=== PATIENT | female | born 1995 | race Hispanic/Latino ===

== ENCOUNTER 2021-08-03 11:28 | Emergency (ER) | payer OTHER | END 2021-08-03 13:15 | disposition home or self-care (01) | LOC: CSHERS 11:28 | DX: O9A.212 Injury, poisoning and certain other consequences of external causes complicating pregnancy, second trimester (principal); M25.572 Pain in left ankle and joints of left foot; M25.472 Effusion, left ankle; W31.89XA Contact with other specified machinery, initial encounter; Y92.69 Other specified industrial and construction area as the place of occurrence of the external cause; Z3A.24 24 weeks gestation of pregnancy ==

== ENCOUNTER 2021-09-12 08:00 | Outpatient (CLI) | payer OTHER ==
[2021-09-12 18:51] LABS: SARS-CoV-2 PCR by NAA Not Detected (NotDetected)
== END 2021-09-12 08:01 | disposition home or self-care (01) ==
LOC: CSHLAB 08:00
PROVIDERS: ATTEND Student in an Organized Health Care Education/Training Program
DX: Z20.822 Contact with and (suspected) exposure to COVID-19 (principal)
CPT/HCPCS: U0003; U0005

== ENCOUNTER 2021-09-15 08:07 | Day surgery (SDC) | payer OTHER ==
[2021-09-15 08:49] VITALS: BMI 29.8
[2021-09-15] MEDS ORDERED: Acetaminophen 500 MG TAB PO SCH (09:00)
[2021-09-15] MEDS ORDERED: Iron Sucrose Complex 500 MG in Sodium Chloride 0.9% 250 ML 250 ML IVPB SCH (09:30)
[2021-09-15] MEDS ORDERED: Famotidine 20 MG TAB PO SCH (13:15)
[2021-09-15] MEDS ORDERED: diphenhydrAMINE 50 MG CAP PO PRN (13:48)
== END 2021-09-15 16:35 | disposition home or self-care (01) ==
LOC: CSHLD/OP 08:07
PROVIDERS: ATTEND Student in an Organized Health Care Education/Training Program
DX: O99.013 Anemia complicating pregnancy, third trimester (principal); D50.9 Iron deficiency anemia, unspecified; O21.0 Mild hyperemesis gravidarum; Z3A.38 38 weeks gestation of pregnancy
CPT/HCPCS: 96361; 96365; 96366; 99284; J1756; J7050

== ENCOUNTER 2021-09-25 19:00 | Inpatient (IN) | payer OTHER ==
[2021-09-26] MEDS ORDERED: Promethazine HCl 25 MG/ML VIAL IM PRN ×2 (01:23→11:53)
[2021-09-26] MEDS ORDERED: hydrALAZINE 20 MG/ML VIAL SLOW IVP PRN (01:23)
[2021-09-26] MEDS ORDERED: Acetaminophen 500 MG TAB PO PRN (01:23)
[2021-09-26] MEDS ORDERED: Ondansetron PF 4 MG/2 ML Vial IVP PRN ×2 (01:23→11:53)
[2021-09-26] MEDS ORDERED: Diphenoxylate HCl/Atropine Tablet PO PRN (01:28)
[2021-09-26] MEDS ORDERED: Ibuprofen 800 MG TAB PO PRN (01:28)
[2021-09-26] MEDS ORDERED: Misoprostol 200 MCG TAB PR PRN (01:28)
[2021-09-26] MEDS ORDERED: Methylergonovine 0.2 MG/ML VIAL IM PRN (01:28)
[2021-09-26] MEDS ORDERED: Carboprost 250 MCG/ML AMP IM PRN (01:28)
[2021-09-26] MEDS ORDERED: Lidocaine 1% (PF) 30 ML VIAL SC PRN (01:28)
[2021-09-26] MEDS ORDERED: NS w/ Oxytocin 30 units 500 ML IV SCH (01:30)
[2021-09-26] MEDS: Lactated Ringer's 1,000 ML IV SCH (02:25)
[2021-09-26 02:33] VITALS: BMI 29.4
[2021-09-26 03:06] LABS: Mean Corpuscular HGB CONC 32.1 g/dL (32.0-36.0); Mean Corpuscular Hemoglobin 27.9 pg (27.0-33.0); Mean Platelet Volume 12.1 fl (7.4-10.4); Platelet Count 226 10x3/uL (150-450); RBC Distribution Width 16.6 % (11.5-14.5); White Blood Cell (WBC) Count 7.2 10x3/uL (3.5-10.5)
[2021-09-26 03:37] LABS: Syphilis Antibody Nonreactive (Nonreactive); Syphilis Antibody Index 0.02 S/CO (<1.00 Non-Reactive)
[2021-09-26 03:38] LABS: Hep B Surf Ag Non-Reactive S/CO (NonReactive)
[2021-09-26 04:07] LABS: HBSAg Index 0.16 S/CO (0-0.99)
[2021-09-26] MEDS ORDERED: Misoprostol 100 MCG TAB ONE (04:29)
[2021-09-26] MEDS: Misoprostol 100 MCG TAB VAG SCH ×3 (04:30→12:10)
[2021-09-26 08:47] LABS: SARS-CoV-2 NAA Rapid Test Not Detected (NotDetected)
[2021-09-26] MEDS ORDERED: diphenhydrAMINE 50 MG/ML VIAL IVP PRN (11:53)
[2021-09-26] MEDS ORDERED: Naloxone HCl 0.4 mg/ml Vial IVP PRN ×2 (11:53)
[2021-09-26] MEDS ORDERED: Lactated Ringer's 500 ML IV PRN (11:53)
[2021-09-26] MEDS ORDERED: Hydrocerin (Eucerin) Cream 120 gm Jar TOP PRN (11:53)
[2021-09-26] MEDS ORDERED: ePHEDrine Sulfate 50 MG/10 ML VIAL SLOW IVP PRN (11:53)
[2021-09-26] MEDS ORDERED: Acetaminophen 325 MG TAB PO PRN (11:53)
[2021-09-26] MEDS ORDERED: Fentanyl 2 mcg/Bup 0.1% Cadd 100 ML ONE ×2 (11:55→21:14)
[2021-09-26] MEDS ORDERED: Communication Order-Pharmacy FS SCH (12:00)
[2021-09-26] MEDS: Fentanyl 2 mcg/Bupivacaine 0.1% Cassette 100 ML EPIDURAL SCH ×2 (12:15→21:19)
[2021-09-26] MEDS ORDERED: Bupivacaine 0.25% HCL 30 ML VIAL ONE (13:09)
[2021-09-26] MEDS ORDERED: Terbutaline Sulfate 1 MG/ML VIAL ONE (13:09)
[2021-09-26] MEDS ORDERED: Terbutaline Sulfate 1 MG/ML VIAL SC SCH (19:00)
[2021-09-26 21:27] LABS: #Monocytes 0.5 10x3/uL (0.0-1.1); #Neutrophils 8.6 10x3/uL (1.5-8.4); %Basophils 0.2 % (0.0-2.0); %Lymphocytes 11.9 % (18.0-47.0); %Monocytes 4.7 % (0.0-10.0); %Neutrophils 82.8 % (40.0-75.0); Hemoglobin 10.9 g/dL (12.0-15.5); Mean Corpuscular HGB CONC 31.8 g/dL (32.0-36.0); Mean Corpuscular Hemoglobin 27.8 pg (27.0-33.0); Mean Corpuscular Volume 87.5 fl (81.6-98.3); Platelet Count 173 10x3/uL (150-450); RBC Distribution Width 16.5 % (11.5-14.5); Red Blood Cell (RBC) Count 3.92 10x6/uL (3.90-5.03); White Blood Cell (WBC) Count 10.4 10x3/uL (3.5-10.5)
[2021-09-26 21:45] LABS: ALT (SGPT) 12 U/L (8-55); AST (SGOT) 15 U/L (5-34); Albumin 3.2 g/dL (3.5-5.0); Alkaline Phosphatase 165 U/L (40-110); Anion Gap 14 mmol/L (10-20); BUN (Urea Nitrogen) 10 mg/dL (7.0-18.7); Bilirubin, Total 0.3 mg/dL (0.2-1.2); Calc. Creatinine Clearance 152 mL/min (70-130); Calcium 8.5 mg/dL (7.8-10.44); Carbon Dioxide 23 mmol/L (22-29); Chloride 105 mmol/L (98-107); Globulin 2.4 g/dL (2.4-3.5); Glucose 84 mg/dL (70-105); Potassium 3.9 mmol/L (3.5-5.1); Protein, Total 5.6 g/dL (6.0-8.3); Sodium 138 mmol/L (136-145)
[2021-09-27] MEDS ORDERED: Boostrix 0.5 ML (Tdap) VIAL IM ONE (04:55)
[2021-09-27] MEDS ORDERED: Bisacodyl 10 MG SUPP PR PRN (04:55)
[2021-09-27] MEDS ORDERED: Preparation H Ointment 28 GM TUBE PR PRN (04:55)
[2021-09-27] MEDS ORDERED: Methylergonovine 0.2 MG/ML VIAL IM PRN (04:55)
[2021-09-27] MEDS ORDERED: hydrALAZINE 20 MG/ML VIAL SLOW IVP PRN (04:55)
[2021-09-27] MEDS ORDERED: Misoprostol 200 MCG TAB VAG PRN (04:55)
[2021-09-27] MEDS ORDERED: Milk Of Magnesia 30 ML UDCUP PO PRN (04:55)
[2021-09-27] MEDS ORDERED: Lanolin Ointment 7 GM TUBE TOP PRN (04:55)
[2021-09-27] MEDS: Ibuprofen 800 MG TAB PO PRN ×3 (05:47→19:55)
[2021-09-27] MEDS: Lactated Ringer's 1,000 ML IV SCH ×4 (07:35→14:55)
[2021-09-27] MEDS: Ferrous Sulfate 325 MG TAB PO SCH ×2 (07:37→14:55)
[2021-09-27] MEDS: Docusate Calcium (SURFAK) 240 MG CAP PO SCH ×2 (08:36→19:55)
[2021-09-27] MEDS: Prenatal Vitamin 1 TAB PO SCH (08:36)
[2021-09-27 22:48] LABS: Creatinine, Urine 44.91 mg/dL (47-110)
[2021-09-28 05:10] LABS: #Eosinphils 0.1 10x3/uL (0.0-0.5); #Monocytes 0.4 10x3/uL (0.0-1.1); #Neutrophils 4.6 10x3/uL (1.5-8.4); %Basophils 0.4 % (0.0-2.0); %Eosinophils 1.4 % (0.0-6.0); %Lymphocytes 31.8 % (18.0-47.0); %Monocytes 5.7 % (0.0-10.0); %Neutrophils 60.3 % (40.0-75.0); Hemoglobin 9.9 g/dL (12.0-15.5); Mean Corpuscular HGB CONC 31.5 g/dL (32.0-36.0); Mean Corpuscular Hemoglobin 27.8 pg (27.0-33.0); Mean Corpuscular Volume 88.2 fl (81.6-98.3); Mean Platelet Volume 12.1 fl (7.4-10.4); Platelet Count 146 10x3/uL (150-450); RBC Distribution Width 17.3 % (11.5-14.5); Red Blood Cell (RBC) Count 3.56 10x6/uL (3.90-5.03); White Blood Cell (WBC) Count 7.7 10x3/uL (3.5-10.5)
[2021-09-28] MEDS: Lactated Ringer's 1,000 ML IV SCH ×2 (06:19→07:57)
[2021-09-28] MEDS: Ibuprofen 800 MG TAB PO PRN (06:21)
[2021-09-28] MEDS: Prenatal Vitamin 1 TAB PO SCH (07:57)
[2021-09-28] MEDS: Docusate Calcium (SURFAK) 240 MG CAP PO SCH (07:57)
[2021-09-28] MEDS: Ferrous Sulfate 325 MG TAB PO SCH (07:57)
[2021-09-28 08:02] VITALS: BP 119/84; TEMP 98.2
== END 2021-09-28 14:40 | disposition home or self-care (01) | DRG 807 ==
LOC: UNDOADMIN 09-26 00:02 → CSHLD 09-26 00:02 → CSHPP 09-27 04:30
PROVIDERS: ADMIT Family Medicine; ATTEND Family Medicine
PROC: 3E0DXGC Introduction of Other Therapeutic Substance into Mouth and Pharynx, External Approach (ICD-10-PCS; 2021-09-26)
PROC: 10E0XZZ Delivery of Products of Conception, External Approach (ICD-10-PCS; principal; 2021-09-27)
PROC: 10907ZC Drainage of Amniotic Fluid, Therapeutic from Products of Conception, Via Natural or Artificial Opening (ICD-10-PCS; 2021-09-27)
PROC: 10H07YZ Insertion of Other Device into Products of Conception, Via Natural or Artificial Opening (ICD-10-PCS; 2021-09-27)
PROC: 3E033VJ Introduction of Other Hormone into Peripheral Vein, Percutaneous Approach (ICD-10-PCS; 2021-09-27)
DX: O99.02 Anemia complicating childbirth (principal); Z37.0 Single live birth; Z3A.39 39 weeks gestation of pregnancy; Z20.822 Contact with and (suspected) exposure to COVID-19; D50.9 Iron deficiency anemia, unspecified; O99.613 Diseases of the digestive system complicating pregnancy, third trimester; K11.7 Disturbances of salivary secretion; O77.0 Labor and delivery complicated by meconium in amniotic fluid; O64.0XX0 Obstructed labor due to incomplete rotation of fetal head, not applicable or unspecified; O99.344 Other mental disorders complicating childbirth; F43.10 Post-traumatic stress disorder, unspecified; O76 Abnormality in fetal heart rate and rhythm complicating labor and delivery; O16.4 Unspecified maternal hypertension, complicating childbirth
CPT/HCPCS: 36415; 51702; 80053; 82570; 84156; 85025; 85027; 86780; 86850; 86900; 86901; 87340; J2405; J2550; J3105; J7120; S0020; U0002

== ENCOUNTER 2024-10-11 22:06 | Emergency (ER) | payer BC, OTHER, SELFPAY | END 2024-10-11 22:27 | disposition home or self-care (01) | LOC: CSHERS 22:06 | DX: K59.00 Constipation, unspecified (principal) | CPT/HCPCS: 99283 ==

== ENCOUNTER 2025-07-09 11:04 | Emergency (ER) | payer OTHER ==
[2025-07-09 13:35] LABS: Glucose, Urine (Dipstick) Normal (Negative); Leukocyte Negative (Negative); Protein, Urine (Dipstick) Negative (Neg-Trace); Specific Gravity, Urine 1.010 (1.005-1.030)
[2025-07-09 13:36] LABS: Pregnancy Test - Urine (BHCG) Negative (Negative); Pregu Control Background? CLEAR/WHITE (CLR/WHITE); Pregu Control Bar Appear? YES (CONTROL BAR)
[2025-07-09 13:47] LABS: Bacteria/HPF 4+ HPF (None Seen); CAUTI Indications for Culture Dysuria,urgency,freq; RBC/HPF None Seen HPF (0-3); WBC/HPF 0-3 HPF (0-3)
[2025-07-09 13:48] LABS: Urine Culture Reflex No No
== END 2025-07-09 14:06 | disposition home or self-care (01) ==
LOC: CSHERS 11:04
DX: N30.00 Acute cystitis without hematuria (principal)
CPT/HCPCS: 81001; 81025; 87077; 87086; 87186; 99283